=== PATIENT | male | born 1975 | race Caucasian/White ===

== ENCOUNTER 2017-07-31 04:12 | Inpatient (IN) | payer OTHER ==
[~2017-07-31] VITALS: Ht 185.4 cm; Wt 97.5 kg
[2017-07-31] VITALS (10 sets, daily range): BP systolic 132–166; BP diastolic 65–88; PULSE 75–86; RESP 16–26; TEMP 98.6–100.3; O2SAT 94–97
[2017-07-31] MEDS ORDERED: HYDROmorphone HCL PF 2 MG/ML VIAL IVS ONE (04:45)
[2017-07-31] MEDS ORDERED: ONDANSETRON HCL 4 MG/2 ML VIAL IV PUSH ONE (04:45)
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
[2017-07-31] MEDS ORDERED: SODIUM CHLORIDE 0.9% FLUSH 10 ML FLUSH IV FLUSH PRN (07:15)
[2017-07-31] MEDS ORDERED: ENALAPRILAT 1.25 MG/ML VIAL IV PUSH PRN (07:15)
[2017-07-31] MEDS ORDERED: ACETAMINOPHEN/HYDROcodone 325 MG/5 MG TAB PO PRN (07:15)
[2017-07-31] MEDS ORDERED: ONDANSETRON HCL 4 MG/2 ML VIAL IV PUSH PRN (07:15)
[2017-07-31] MEDS: SODIUM CHLOR 0.9% 1000 ML INJ 1,000 ML IV SCH ×2 (08:44→17:01)
[2017-07-31] MEDS: MAGNESIUM HYDROXIDE SUSP 30 ML CUP PO SCH ×2 (09:00→21:00)
[2017-07-31] MEDS: DOCUSATE SODIUM 100 MG CAP PO SCH ×2 (09:00→21:00)
[2017-07-31] MEDS: FAMOTIDINE 20 MG TAB PO SCH ×2 (09:00→21:00)
[2017-07-31] MEDS: MORPHINE SULFATE 2 MG/ML INJ IV PUSH PRN ×3 (10:35→16:50)
[2017-07-31] MEDS: MULTIVITAMIN INJ 10 ML, THIAMINE INJ 100 MG, FOLIC ACID INJ 1 MG in SODIUM CHLORID 0.9%... IV SCH (10:35)
[2017-07-31] MEDS: ACETAMINOPHEN/HYDROcodone 325 MG/5 MG TAB PO PRN ×3 (12:18→22:14)
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
[2017-07-31] MEDS ORDERED: MORPHINE SULFATE 30 MG CONTROLLED RELEASE TAB PO SCH (21:00)
[2017-07-31] MEDS ORDERED: HYDROmorphone HCL 4 MG TAB PO PRN (21:00)
[2017-07-31] MEDS: HYDROmorphone HCL 2 MG TAB PO PRN (21:00)
[2017-08-01] VITALS (10 sets, daily range): BP systolic 143–170; BP diastolic 72–81; PULSE 68–88; RESP 16–20; TEMP 98.1–99.4; O2SAT 91–97
[2017-08-01] MEDS: HYDROmorphone HCL 2 MG TAB PO PRN (00:58)
[2017-08-01] MEDS: ACETAMINOPHEN/HYDROcodone 325 MG/5 MG TAB PO PRN ×3 (02:23→11:47)
[2017-08-01] MEDS: SODIUM CHLOR 0.9% 1000 ML INJ 1,000 ML IV SCH ×3 (03:01→15:09)
[2017-08-01 04:50] LABS: BICARBONATE 26.3 MEQ/L (21.0-32.0); CALCIUM 8.4 MG/DL (8.5-10.1); CREATININE 1.01 MG/DL (0.60-1.30)
[2017-08-01 06:21] LABS: AUTOMATED NEUTROPHIL # 8.8 TH/MM3 (1.8-7.7); BASOPHIL % 0.2 % (0.0-2.0); EOSINOPHIL # 0.1 TH/MM3 (0-0.4); EOSINOPHIL % 0.7 % (0.0-4.0); HEMATOCRIT 42.7 % (39.0-51.0); HEMOGLOBIN 15.1 GM/DL (13.0-17.0); LYMPH % 16.2 % (9.0-44.0); LYMPHOCYTE # 1.9 TH/MM3 (1.0-4.8); MEAN CELL VOLUME 84.9 FL (80.0-100.0); MEAN CORPUSCULAR HGB CONC 35.3 % (32.0-36.0); MEAN PLATELET VOLUME 7.5 FL (7.0-11.0); MONO % 9.9 % (0.0-8.0); MONOCYTE # 1.2 TH/MM3 (0-0.9); PLATELET COUNT 204 TH/MM3 (150-450); RED BLOOD COUNT 5.04 MIL/MM3 (4.50-5.90); RED CELL DISTRIBUTION WIDTH 12.6 % (11.6-17.2)
[2017-08-01] MEDS: MAGNESIUM HYDROXIDE SUSP 30 ML CUP PO SCH ×3 (09:00→21:13)
[2017-08-01] MEDS: DOCUSATE SODIUM 100 MG CAP PO SCH ×3 (09:00→21:13)
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
[2017-08-01] MEDS: FAMOTIDINE 20 MG TAB PO SCH ×2 (10:18→21:11)
[2017-08-01] MEDS: MULTIVITAMIN INJ 10 ML, THIAMINE INJ 100 MG, FOLIC ACID INJ 1 MG in SODIUM CHLORID 0.9%... IV SCH (10:19)
[2017-08-01] MEDS: ENOXAPARIN SODIUM 30 MG/0.3 ML SYRINGE SQ SCH ×2 (10:37→23:50)
[2017-08-01] MEDS: METHOCARBAMOL 500 MG TAB PO SCH ×2 (10:37→18:15)
[2017-08-01] MEDS: KETOROLAC TROMETHAMINE 30 MG/ML (IVP) VIAL IV PUSH SCH ×3 (11:47→23:50)
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
[2017-08-01] MEDS ORDERED: oxyCODONE/ACETAMINOPHEN 5 MG/325 MG TAB PO PRN (16:00)
[2017-08-01] MEDS: oxyCODONE/ACETAMINOPHEN 7.5 MG/325 MG TAB PO PRN ×2 (16:41→21:09)
[2017-08-02 00:43] VITALS: BP 145/76; PULSE 63; RESP 18; TEMP 99; O2SAT 94
[2017-08-02] MEDS: oxyCODONE/ACETAMINOPHEN 7.5 MG/325 MG TAB PO PRN ×3 (01:30→09:19)
[2017-08-02] MEDS: METHOCARBAMOL 500 MG TAB PO SCH ×2 (03:13→09:19)
[2017-08-02 04:00] VITALS: BP 142/73; PULSE 70; RESP 18; TEMP 98.3; O2SAT 95
[2017-08-02] MEDS: KETOROLAC TROMETHAMINE 30 MG/ML (IVP) VIAL IV PUSH SCH (05:38)
[2017-08-02 08:29] VITALS: BP 144/80; PULSE 70; RESP 20; TEMP 97.8; O2SAT 94
[2017-08-02] MEDS: FAMOTIDINE 20 MG TAB PO SCH (09:20)
[2017-08-02] MEDS: MAGNESIUM HYDROXIDE SUSP 30 ML CUP PO SCH (09:22)
[2017-08-02] MEDS: DOCUSATE SODIUM 100 MG CAP PO SCH (09:22)
[2017-08-02] MEDS: MULTIVITAMIN INJ 10 ML, THIAMINE INJ 100 MG, FOLIC ACID INJ 1 MG in SODIUM CHLORID 0.9%... IV SCH (09:22)
[2017-08-02] MEDS: ENOXAPARIN SODIUM 30 MG/0.3 ML SYRINGE SQ SCH (09:23)
[2017-08-02] MEDS: SODIUM CHLOR 0.9% 1000 ML INJ 1,000 ML IV SCH (09:24)
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
== END 2017-08-02 11:44 | disposition left against medical advice (07) | DRG 552 ==
LOC: NEPE 04:12 → NEDA 04:51 → N03A 12:34 → N05B 08-01 16:18
PROVIDERS: ADMIT Surgery; ATTEND Surgery
DX: S32.021A Stable burst fracture of second lumbar vertebra, initial encounter for closed fracture (principal); F17.200 Nicotine dependence, unspecified, uncomplicated; S32.028A Other fracture of second lumbar vertebra, initial encounter for closed fracture; M48.061 Spinal stenosis, lumbar region without neurogenic claudication; M54.6 Pain in thoracic spine; V89.2XXA Person injured in unspecified motor-vehicle accident, traffic, initial encounter; Y92.410 Unspecified street and highway as the place of occurrence of the external cause; W22.10XA Striking against or struck by unspecified automobile airbag, initial encounter
CPT/HCPCS: 76937; 80048; 85025; 94150; J1170; J1650; J1885; J2270; J2405; J3411; J7030; J7040; L0200; L0484